=== PATIENT | male | born 1965 | race Caucasian/White ===

== ENCOUNTER 2018-06-22 13:38 | Emergency (ER) | payer OTHER ==
[2018-06-22 13:45] VITALS: BP 132/74; PULSE 94; RESP 16; TEMP 98; O2SAT 97
--- NOTE | 2018-06-22 14:10 | ED PDOC ---
HPI: Psych/Substance Abuse Time Seen by Provider: 06/22/18 14:09 Chief Complaint (Nursing): Alcohol Ingestion Chief Complaint (Provider): etoh History Per: Patient, EMS Additional Complaint(s): 53-year-old male presents via ambulance acutely intoxicated. Patient was found outside and was noted to have unsteady gait. He admits to drinking today. He denies any drug use and offers no acute medical or psychiatric complaints. PMD: none Past Medical History Reviewed: Historical Data, Nursing Documentation, Vital Signs Vital Signs: Last Vital Signs Temp 98.0 F 06/22/18 13:42 Pulse 94 H 06/22/18 13:42 Resp 16 06/22/18 13:42 BP 132/74 06/22/18 13:42 Pulse Ox 97 06/22/18 13:42 - Medical History PMH: No Chronic Diseases - Family History Family History: States: No Known Family Hx - Social History Alcohol: > 2 Drinks/Day - Allergies Allergies/Adverse Reactions: Allergies Allergy/AdvReac Type Severity Reaction Status Date / Time No Known Allergies Allergy Verified 06/22/18 13:42 Review of Systems ROS Statement: Except As Marked, All Systems Reviewed And Found Negative Psych: Positive for: Other (etoh) Physical Exam - Reviewed Nursing Documentation Reviewed: Yes Vital Signs Reviewed: Yes - Physical Exam Appears: Positive for: Well, Non-toxic, No Acute Distress Skin: Positive for: Normal Color. Negative for: Rash Eye Exam: Positive for: Normal appearance Cardiovascular/Chest: Positive for: Regular Rate, Rhythm Respiratory: Positive for: Normal Breath Sounds. Negative for: Respiratory Distress Neurologic/Psych: Positive for: Other (intoxicated, answers some questions appropriately) - ECG O2 Sat by Pulse Oximetry: 97 Pulse Ox Interpretation: Normal Medical Decision Making Medical Decision Makin53 y/o intoxicated male Plan: Glucose POC BAL Fingerstick - 99 BAL: 391 4:40 pm: Patient is awake, alert, has steady gait. Vital signs are stable, patient is stable for discharge. Disposition - Clinical Impression Clinical Impression: Alcohol abuse with intoxication - Patient ED Disposition Is Patient to be Admitted: No Counseled Patient/Family Regarding: Need For Followup - Disposition Referrals: [facility] [Outside] Disposition: Routine/Home Disposition Time: 16:49 Condition: STABLE Instructions: Alcohol Abuse and Alcoholism (DC) Forms: [employer] ([place]istani)
== END 2018-06-22 17:17 | disposition home or self-care (01) ==
LOC: H.ER 13:38
DX: F10.129 Alcohol abuse with intoxication, unspecified (principal); Y90.8 Blood alcohol level of 240 mg/100 ml or more